=== PATIENT | female | born 1990 | race African-American/Black ===

== ENCOUNTER 2020-02-18 05:30 | Emergency (ER) | payer OTHER ==
[~2020-02-18] VITALS: Ht 172.7 cm; Wt 54.4 kg
[2020-02-18] MEDS ORDERED: SEROQUEL (05:50)
[2020-02-18 07:21] LABS: ABSOLUTE NEUTROPHILS 4.5 thou/uL (1.4-8.2); BASOPHILS 0.6 % (0.0-2.0); EOSINOPHILS 2.8 % (0.0-3.0); HEMOGLOBIN 15.7 gm/dL (12.0-15.0); LYMPHOCYTES 24.1 % (24.0-44.0); MCH 36.5 pg (26.0-34.0); MCHC 34.8 g/dL (28.0-37.0); MONOCYTES 7.8 % (1.0-8.0); PLATELET COUNT 262 thou/uL (150-400); POLYS 64.7 % (36.0-66.0); RBC 4.29 mil/uL (4.20-5.00); RDW 14.3 % (10.5-14.5)
[2020-02-18 07:24] LABS: CALCIUM 8.5 mg/dL (8.5-10.1); CREATININE 0.8 mg/dL (0.6-1.0)
[2020-02-18 07:30] LABS: ALBUMIN 3.7 g/dL (3.4-5.0); MAGNESIUM 1.9 mg/dL (1.8-2.4); TOTAL BILIRUBIN 0.5 mg/dL (0.2-1.0); TOTAL PROTEIN 7.8 g/dL (6.4-8.2)
[2020-02-18 07:33] LABS: POTASSIUM 2.9 mmol/L (3.5-5.1)
--- NOTE | 2020-02-18 08:00 | EKG ---
[facility] [place] [address] ELECTROCARDIOGRAM REPORT Name: SALINAS BULLARD Room #: REG [facility]#: [id number] Admission: 02/18/20 Attend Phys: Discharge: Date of : [birth year] Report #: [id number] THIS REPORT FOR: cc: EDEN - Edith family physician/PCP EDEN - Edith family physician/PCP Nolan Trevizo MD [facility] ~ THIS REPORT FOR: //name// [facility] ED Test Date: 2020-02-18 Test Time: 06:51:51 Pat Name: SALINAS BULLARD Department: Room: Gender: F Supervisor [employer]: : [id number] Requested By: Walker Garcia Order Number: [id number] MD: Nolan Trevizo Measurements Intervals [place] Rate: 101 P: 53 NH: 146 QRS: 65 QRSD: 99 T: -26 QT: 376 QTc: 488 Interpretive Statements Sinus tachycardia T abnormalities, diffuse leads Borderline prolonged QT interval No previous ECG available for comparison Electronically Signed On 02-18-2020 8:00:25 CDT by Nolan Trevizo [email or web address] <ELECTRONICALLY SIGNED> By: Nolan Trevizo MD, [facility] 02/18/20 0800 0651 06 Nolan Trevizo MD, FACC /EPI
[2020-02-18 08:27] LABS: TROPONIN-I <0.06 ng/mL (<0.06)
[2020-02-18 09:45] LABS: URINE BLOOD 3+ (Negative); URINE GLUCOSE-RANDOM* NEGATIVE (Negative); URINE KETONES 3+ (Negative); URINE PROTEIN (DIPSTICK) 2+ (Negative); URINE SPECIFIC GRAVITY 1.025 (1.005-1.035)
[2020-02-18 09:46] LABS: URINE CLARITY HAZY; URINE COLOR DK YELLOW; URINE LEUKOCYTES-REFLEX 1+ (Negative); URINE NITRITE-REFLEX POSITIVE (Negative)
[2020-02-18 09:47] LABS: ICTOTEST (BILI CONFIRMATORY) Negative (Negative); URINE BILIRUBIN NEGATIVE (Negative)
[2020-02-18 09:51] LABS: URINE REDUCING SUBSTANCE NEGATIVE
[2020-02-18 10:05] LABS: CASTS None Seen /LPF (None Seen); MUCUS 4-6 Moderate strn/LPF (None Seen); SQUAMOUS >10 Many /LPF (0-3)
[2020-02-18 10:07] LABS: BACTERIA-REFLEX >30 Many /HPF (None Seen); CRYSTALS None Seen /LPF (None Seen); URINE RBC >20 Many /HPF (0-2)
[2020-02-18 10:09] LABS: AMP/METHAMP Negative (Negative); BARBITURATES Negative (Negative); BENZODIAZEPINES Negative (Negative); COCAINE Negative (Negative); METHADONE Negative (Negative); OPIATES Negative (Negative); PCP POSITIVE (Negative)
[2020-02-19] MEDS ORDERED: BACTRIM DS TAB1 EACH PO (01:16)
[2020-02-19 01:31] VITALS: BP 128/74
== END 2020-02-19 01:41 | disposition short-term general hospital (02) ==
LOC: ER 05:30
PROVIDERS: Emergency Medicine
DX: F29 Unspecified psychosis not due to a substance or known physiological condition (principal); E87.6 Hypokalemia; N39.0 Urinary tract infection, site not specified; R41.82 Altered mental status, unspecified; F31.9 Bipolar disorder, unspecified; F15.10 Other stimulant abuse, uncomplicated; F12.90 Cannabis use, unspecified, uncomplicated; L30.9 Dermatitis, unspecified; D53.9 Nutritional anemia, unspecified; F16.10 Hallucinogen abuse, uncomplicated; M62.82 Rhabdomyolysis; R00.0 Tachycardia, unspecified